=== PATIENT | male | born 1955 | race Caucasian/White ===

== ENCOUNTER 2020-01-02 08:19 | Day surgery (SDC) | payer BC ==
--- NOTE | 2020-01-01 12:51 | PCM.PREANE ---
<Mirna Tyson - Last Filed: 01/01/20 12:48> Preanesthetic Assessment - Procedure Proposed Procedure: Mass Excision of Right Hand - Anesthesia/Transfusion/Family Hx Anesthesia History: Prior Anesthesia Without Reaction Family History of Anesthesia Reaction: No Transfusion History: No Prior Transfusion(s) Intubation History: Unknown - Review of Systems Pulmonary: No Symptoms (Quit smoking March 2013/ ETOH: 4 drinks/week), Cough (?? from lisinopril) Cardiovascular: No Symptoms (Elevated cholesterol, HTN) Other: Reports: Easy Bleeding, Easy Bruising - Physical Assessment NPO Status Date: 01/01/20 Vital Signs: HR: Sat: Temp: Resp: B/P: Height: 5 ft 7 in ASA Class: 2 Mental Status: Alert & Oriented x3 - Lab Values: All labs reviewed and noted and within acceptable ranges to proceed with scheduled procedure. - Imaging/EKG Impressions: EKG: SB rate 58 (2015) right total knee - Allergies Allergies/Adverse Reactions: Allergies Allergy/AdvReac Type Severity Reaction Status Date / Time No Known Allergies Allergy Verified 01/01/20 14:53 - Anesthesia Plan Pre-Op Medication Ordered: None - Acknowledgements Anesthesia Type Planned: ANGIE Pt an Appropriate Candidate for the Planned Anesthesia: Yes Alternatives and Risks of Anesthesia Discussed w Pt/Guardian: Yes Pt/Guardian Understands and Agrees with Anesthesia Plan: Yes PreAnesthesia Questionnaire Cardiovascular History: Reports: High Cholesterol, Hypertension Genitourinary History: Reports: Other (See Below) Other Genitourinary History: Decreased libido Musculoskeletal History: Reports: Osteoarthritis Dermatologic History: Reports: Other (See Below) Other Dermatologic History: onycholysis, seborrheic keratosis, actininc keratose s - Infectious Disease History Infectious Disease History: Reports: Rheumatic Fever - Past Surgical History Musculoskeletal Surgical History: Reports: Knee Replacement, Other (See Below) - HOME MEDS Home Medications: Home Meds Cholecalciferol (Vitamin D3) [Vitamin D3] 1,000 unit PO DAILY 12/11/15 [History] Naproxen Sodium [Aleve] 220 mg PO Q6HR PRN 12/11/15 [History] Gilman-3 Fatty Acids [Fish Oil] 300 mg PO DAILY 12/11/15 [History] Rosuvastatin Calcium [Crestor] 10 mg PO DAILY 10/07/16 [History] lisinopriL [Prinivil] 20 mg PO DAILY 01/01/20 [History] Acetaminophen/HYDROcodone [Mereta 325-5 MG] 1 - 2 tab PO Q6H PRN #15 tablet 01/02/20 [Rx] <Fabian Benitez M - Last Filed: 01/02/20 08:47> Preanesthetic Assessment - Anesthesia/Transfusion/Family Hx Anesthesia History: No Prior Anesthesia Family History of Anesthesia Reaction: No Transfusion History: No Prior Transfusion(s) Intubation History: Unknown - Review of Systems General: No Symptoms Pulmonary: No Symptoms, Cough Cardiovascular: No Symptoms Gastrointestinal: No Symptoms Neurological: No Symptoms Other: Reports: Easy Bleeding, Easy Bruising - Physical Assessment NPO Status Time: 21:00 Vital Signs: 57 141/88 16 97% 97.1 Weight: 94 kg ASA Class: 2 Mental Status: Alert & Oriented x3 Airway Class: Mallampati = 1 Dentition: Reports: Normal Dentition Thyro-Mental Finger Breadths: 3 Mouth Opening Finger Breadths: 3 ROM/Head Extension: Full Lungs: Clear to Auscultation, Normal Respiratory Effort Cardiovascular: Regular Rate, Regular Rhythm - Blood Blood Available: No - Anesthesia Plan Pre-Op Medication Ordered: None - Acknowledgements Anesthesia Type Planned: ANGIE Pt an Appropriate Candidate for the Planned Anesthesia: Yes Alternatives and Risks of Anesthesia Discussed w Pt/Guardian: Yes Pt/Guardian Understands and Agrees with Anesthesia Plan: Yes PreAnesthesia Questionnaire Cardiovascular History: Reports: High Cholesterol, Hypertension Respiratory History: Reports: None Gastrointestinal History: Reports: None Oncologic (Cancer) History: Reports: None - Past Surgical History GI Surgical History: Reports: Appendectomy Musculoskeletal Surgical History: Reports: Knee Replacement - SUBSTANCE USE Tobacco Use Status *Q: Former Tobacco User (quit 2013) Tobacco Use Within Last Twelve Months: No Second Hand Smoke Exposure: No Days Per Week of Alcohol Use: 7 Number of Drinks Per Day: 1 Total Drinks Per Week: 7 Recreational Drug Use History: No - CURRENT (IN HOUSE) MEDS Current Meds: Current Medications Lactated Ringer's (Ringers, Lactated) 1,000 mls @ 125 mls/hr IV ASDIRECTED BENJIE Stop: 01/02/20 23:00 Lidocaine/Sodium Bicarbonate (Buffered Lidocaine 1% In Ns 8.4%) 0.25 ml IDERM ONETIME PRN PRN Reason: Prior to IV Start Stop: 01/02/20 18:00 Sodium Chloride (Saline Flush) 10 ml FLUSH ASDIRECTED PRN PRN Reason: Keep Vein Open Stop: 01/02/20 18:00 Discontinued Medications Cefazolin Sodium (Ancef) Confirm Administered Dose 2 gm .ROUTE .STK-MED ONE Stop: 01/02/20 05:56 Dexamethasone (Dexamethasone) Confirm Administered Dose 20 mg .ROUTE .STK-MED ONE Stop: 01/02/20 05:56 Fentanyl (Sublimaze) Confirm Administered Dose 100 mcg .ROUTE .STK-MED ONE Stop: 01/02/20 05:57 Lidocaine HCl (Xylocaine-Mpf 1%) Confirm Administered Dose 4 mls @ as directed .ROUTE .STK-MED ONE Stop: 01/02/20 05:56 Ketorolac Tromethamine (Toradol) Confirm Administered Dose 30 mg .ROUTE .STK-MED ONE Stop: 01/02/20 05:56 Lidocaine HCl (Xylocaine-Mpf 0.5%) Confirm Administered Dose 50 ml .ROUTE .STK- MED ONE Stop: 01/02/20 05:56 Midazolam HCl (Versed 1 Mg/Ml) Confirm Administered Dose 2 mg .ROUTE .STK-MED ONE Stop: 01/02/20 05:57 Ondansetron HCl (Zofran) Confirm Administered Dose 4 mg .ROUTE .STK-MED ONE Stop: 01/02/20 05:56 Propofol (Diprivan 20 Ml) Confirm Administered Dose 200 mg .ROUTE .STK-MED ONE Stop: 01/02/20 05:56 Sodium Bicarbonate (Sodium Bicarbonate 8.4%) Confirm Administered Dose 50 meq .ROUTE .STK-MED ONE Stop: 01/02/20 05:56
[~2020-01-02 08:19] MED LIST: Dexamethasone 4 MG/ML 5 ML MDV ONE; Ketorolac 30 MG/ML SDV ONE; Lactated Ringers 1,000 ML IV SCH; Lidocaine 0.5% 50 ML SDV ONE; Lidocaine 1% 4 ML ONE; Lidocaine 1%/Sod Bicarbonate in NS 8.4% 1 ML Syringe IDERM PRN; Midazolam 1 MG/ML 2 ML SDV ONE; Ondansetron 4 MG/2 ML SDV ONE; Propofol 200 MG/20 ML SDV ONE; Sodium Bicarbonate 8.4% 50 MEQ/50 ML SDV ONE; Sodium Chloride 0.9% 10 ML Syringe FLUSH PRN; ceFAZolin 1 GM Vial ONE; fentaNYL 100 MCG/2 ML SDV ONE
[2020-01-02] MEDS ORDERED: Bupivacaine 0.25% 10 ML SDV ONE (10:47)
--- NOTE | 2020-01-02 10:58 | PCM48HPAN ---
Post Anesthesia Note - EVALUATION WITHIN 48HRS OF ANESTHETIC Vital Signs in Normal Range: Yes Patient Participated in Evaluation: Yes Respiratory Function Stable: Yes Airway Patent: Yes Cardiovascular Function Stable: Yes Hydration Status Stable: Yes Pain Control Satisfactory: Yes Nausea and Vomiting Control Satisfactory: Yes Mental Status Recovered: Yes Vital Signs: Last Vital Signs Temp 97.1 F 01/02/20 08:20 Pulse 57 L 01/02/20 08:20 Resp 16 01/02/20 08:20 BP 141/88 H 01/02/20 08:20 Pulse Ox 97 01/02/20 08:20 1055 64 10 97.0 95% 122/77
[2020-01-02 11:34] VITALS: BP 120/85; PULSE 55
--- NOTE | 2020-01-13 11:02 | PCM.OPNOTE ---
- General Post-Op/Procedure Note Date of Surgery/Procedure: 01/02/20 Operative Procedure(s): right hand mass excision Pre Op Diagnosis: right hand mass Post-Op Diagnosis: Same Anesthesia Technique: MAC, Regional Block Primary Surgeon: Rajiv Sargent Anesthesia Provider: Fabian Benitez Container Washer Machine: Alberta Han EBL in mLs: 5 Complications: None Condition: Good
--- NOTE | 2020-01-13 11:18 | OR ---
DATE OF OPERATION: 01/02/2020 SURGEON: Rajiv Sargent MD OPERATION PERFORMED: Right hand mass excision. PREOPERATIVE DIAGNOSIS: Right hand mass. POSTOPERATIVE DIAGNOSIS: Right hand mass. ANESTHESIA: MAC with regional [place] block. ANESTHESIA PROVIDER: Fabian Benitez CRNA DIRECTOR OF ATHLETICS: Ablerta Han PA-C ESTIMATED BLOOD LOSS: 5 mL. COMPLICATIONS: None. CONDITION: Stable. SPECIMENS: Right hand mass sent for permanent. DESCRIPTION OF PROCEDURE: The patient was identified in the preoperative holding area where the proper site was marked and identified by the surgeon. The patient was taken back to the operating theater where, after adequate anesthesia, a niko block was performed to the right upper extremity. The patient had 2 g of IV Ancef before this was completed. At this time, then the right upper extremity was sterilely prepped and draped in the usual sterile fashion. OR time-out was performed. The patient received preoperative antibiotics beforehand as stated. At this time, a longitudinal incision was made centered over the hand mass just ulnar to the dorsum of the 5th metacarpal. This was taken down. The patient was noted to have an epidermal inclusion cyst. Some of the material was evacuated, and then it was removed and resected in whole. There was no tendinous involvement, and no nerve involvement that was noted or any neurovascular involvement. At this time, once it was completely resected, it was sent for permanent specimen. Adequate saline was irrigated through the wound. 3-0 Vicryl was used subcutaneously. Monocryl was used for closure of the skin. The patient was placed in a sterile soft dressing and sent to the PACU in stable condition. MMODAL /[id number]
== END 2020-01-02 11:37 | disposition home or self-care (01) ==
LOC: JD.SDS 08:19
PROVIDERS: ATTEND Orthopaedic Surgery
DX: L72.0 Epidermal cyst (principal); D36.10 Benign neoplasm of peripheral nerves and autonomic nervous system, unspecified; E78.00 Pure hypercholesterolemia, unspecified; I10 Essential (primary) hypertension; E66.3 Overweight; Z79.899 Other long term (current) drug therapy; Z87.891 Personal history of nicotine dependence; Z79.82 Long term (current) use of aspirin; Z68.30 Body mass index [BMI] 30.0-30.9, adult
CPT/HCPCS: 11424; J0690; J1100; J1885; J2001; J2250; J2405; J2704; J3010; J3490; J7120; 01810

== ENCOUNTER 2020-02-02 19:28 | Emergency (ER) | payer BC ==
[2020-02-02 19:48] VITALS: BP 165/91; PULSE 62
--- NOTE | 2020-02-02 20:35 | EDM.PDOC ---
ED HPI GENERAL MEDICAL PROBLEM - General Chief Complaint: Respiratory Problem Stated Complaint: sob cough congestion body aches Time Seen by Provider: 02/02/20 19:52 Source of Information: Reports: Patient, RN Notes Reviewed - History of Present Illness INITIAL COMMENTS - FREE TEXT/NARRATIVE: 64 yr old male has been ill for about 7 days with lloyd, nasal lloyd., cough, dyspnea, chills, body aches. He did have a covid screen done 6 days ago, has not yet heard results. Most concerned cough and difficulty breathing. Left Upper Chest Pain Score (Numeric/FACES): 8 - Related Data Allergies Allergy/AdvReac Type Severity Reaction Status Date / Time No Known Allergies Allergy Verified 02/02/20 19:48 Home Meds: Home Meds Cholecalciferol (Vitamin D3) [Vitamin D3] 1,000 unit PO DAILY 12/11/15 [History] Naproxen Sodium [Aleve] 220 mg PO Q6HR PRN 12/11/15 [History] [place]oval-3 Fatty Acids [Fish Oil] 300 mg PO DAILY 12/11/15 [History] Rosuvastatin Calcium [Crestor] 10 mg PO DAILY 12/11/15 [History] lisinopriL [Prinivil] 20 mg PO DAILY 01/01/20 [History] Past Medical History Cardiovascular History: Reports: High Cholesterol, Hypertension Respiratory History: Reports: None Gastrointestinal History: Reports: None Genitourinary History: Reports: Other (See Below) Other Genitourinary History: 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 Musculoskeletal History: Reports: Osteoarthritis Neurological History: Reports: None Psychiatric History: Reports: None Endocrine/Metabolic History: Reports: None Hematologic History: Reports: None Immunologic History: Reports: None Oncologic (Cancer) History: Reports: None Dermatologic History: Reports: Other (See Below) Other Dermatologic History: onycholysis, seborrheic keratosis, actininc keratoses - Infectious Disease History Infectious Disease History: Reports: Chicken Pox, Measles, Mumps - Past Surgical History Head Surgeries/Procedures: Reports: None HEENT Surgical History: Reports: LASIK, Tonsillectomy Cardiovascular Surgical History: Reports: None Respiratory Surgical History: Reports: None GI Surgical History: Reports: Appendectomy Male Surgical History: Reports: None Endocrine Surgical History: Reports: None Neurological Surgical History: Reports: None Musculoskeletal Surgical History: Reports: Knee Replacement Other Musculoskeletal Surgeries/Procedures:: bilateral knee replacements Oncologic Surgical History: Reports: None Dermatological Surgical History: Reports: None Social & Family History - Family History Family Medical History: No Pertinent Family History Cardiac: Reports: CAD, NM Other Cardiac Family History: father OBGYN: Reports: Endocrine/Metabolic: Reports: Diabetes, type II Other Endocrine/Metabolic Family History: Mother Oncologic: Reports: Other (See Below) Other Oncologic Family History: Mother of cancer - Tobacco Use Tobacco Use Status *Q: Former Tobacco User Used Tobacco, but Quit: Yes Month/Year Tobacco Last Used: 2011 - Caffeine Use Caffeine Use: Reports: Coffee, Soda - Recreational Drug Use Recreational Drug Use: No ED ROS GENERAL - Review of Systems Review Of Systems: See Below Constitutional: Reports: Fever (low grade), Chills HEENT: Reports: Rhinitis Respiratory: Reports: Shortness of Breath, Cough Cardiovascular: Denies: Chest Pain Endocrine: Reports: Fatigue GI/Abdominal: Reports: Decreased Appetite. Denies: Abdominal Pain, Nausea, Vomiting Musculoskeletal: Reports: Other (generalized achiness) Skin: Reports: No Symptoms Neurological: Reports: Headache (mild off and on) ED EXAM, GENERAL - Physical Exam Exam: See Below General Appearance: Alert, No Apparent Distress Head: Atraumatic Neck: Supple Respiratory/Chest: No Respiratory Distress, Lungs Clear, Normal Breath Sounds. No: Rales, Rhonchi, Wheezing Cardiovascular: Regular Rate, Rhythm GI/Abdominal: Soft, Non-Tender Extremities: Normal Inspection. No: Pedal Edema, Leg Pain, Increased Warmth, Redness Neurological: Alert, Oriented, No Motor/Sensory Deficits Skin Exam: Warm, Dry, Normal Color Course - Vital Signs Last Recorded V/S: Last Vital Signs Temp 98.4 F 02/02/20 19:38 Pulse 62 02/02/20 19:38 Resp 20 02/02/20 19:38 BP 165/91 H 02/02/20 19:38 Pulse Ox 100 02/02/20 19:38 - Orders/Labs/Meds Orders: Active Orders 24 hr Category Date Time Status Chest 1V Frontal [CR] Stat Exams 02/02/20 19:54 Taken CORONAVIRUS COVID-19 PCR PHL Stat Lab 02/02/20 20:35 Received FERRITIN [CHEM] Stat Lab 02/02/20 20:18 Received Labs: Laboratory Tests 02/02/20 02/02/20 02/02/20 Range/Units 20:18 20:18 20:18 WBC 6.59 (4.23-9.07) K/mm3 RBC 4.66 (4.63-6.08) M/mm3 Hgb 15.5 D (13.7-17.5) gm/dl Hct 44.5 (40.1-51.0) % MCV 95.5 H D (79.0-92.2) fl MCH 33.3 H (25.7-32.2) pg MCHC 34.8 (32.2-35.5) g/dl RDW Std Deviation 41.6 (35.1-43.9) fL Plt Count 234 (163-337) K/mm3 MPV 8.4 L (9.4-12.3) fl Neut % (Auto) 65.9 (34.0-67.9) % Lymph % (Auto) 20.5 L (21.8-53.1) % [place] % (Auto) 12.1 (5.3-12.2) % Eos % (Auto) 1.2 (0.8-7.0) Baso % (Auto) 0.3 (0.1-1.2) % Neut # (Auto) 4.34 (1.78-5.38) K/mm3 Lymph # (Auto) 1.35 (1.32-3.57) K/mm3 [place] # (Auto) 0.80 (0.30-0.82) K/mm3 Eos # (Auto) 0.08 (0.04-0.54) K/mm3 Baso # (Auto) 0.02 (0.01-0.08) K/mm3 D-Dimer, Quantitative 0.20 (0.19-0.50) mg/L Lactate Dehydrogenase 188 (85-227) U/L C-Reactive Protein 0.5 (<1.0) mg/dL Meds: Medications Discontinued Medications Generic Name Dose Route Start Last Admin Trade Name Freq PRN Reason Stop Dose Admin Azithromycin 500 mg 02/02/20 21:30 Zithromax PO 02/02/20 21:31 ONETIME ONE - Re-Assessments/Exams Free Text/Narrative Re-Assessment/Exam: 02/02/20 21:09 We checked with Pancho, his covid screen from 6 days ago was neg. His CXR is nl, oxygen good with sats 99 to 100 %. D Dimer 0.2. Departure - Departure Time of Disposition: 21:31 Disposition: Home, Self-Care 01 Condition: Fair Clinical Impression: Bronchitis - Discharge Information Instructions: Acute Bronchitis, Adult Referrals: PCP,None [Primary Care Provider] - Forms: ED Department Discharge Additional Instructions: Your CXR is normal this evening. Your oxygen reading are also normal running 99 to 100 %. The inflamatory markers that are always elevated with serious covid infection are normal this evening, not elevated. Therefore if you do have covid it is mild with no sign of inflamation or pneumonia. You have been given your first dose of zithromax for bronchitis. Fill the prescription provided tomorrow and continue that until gone. We will call you with results of the covid screen done this evening, usually available in 2 to 3 days. Return to ED for severe difficulty breathing or otherwise as needed. Sepsis Event Note (ED) - Evaluation Sepsis Screening Result: No Definite Risk - Focused Exam Vital Signs: Vital Signs Temp Pulse Resp BP Pulse Ox 02/02/20 19:38 98.4 F 62 20 165/91 H 100 - My Orders Last 24 Hours: My Active Orders 02/02/20 19:54 Chest 1V Frontal [CR] Stat 02/02/20 20:18 FERRITIN [CHEM] Stat 02/02/20 20:35 CORONAVIRUS COVID-19 PCR PHL Stat - Assessment/Plan Last 24 Hours: My Active Orders 02/02/20 19:54 Chest 1V Frontal [CR] Stat 02/02/20 20:18 FERRITIN [CHEM] Stat 02/02/20 20:35 CORONAVIRUS COVID-19 PCR PHL Stat
[2020-02-02] MEDS ORDERED: Azithromycin 250 MG Tab PO ONE (21:30)
--- NOTE | 2020-02-03 13:29 | CR ---
PROCEDURE INFORMATION: Exam: XR Chest, 1 View Exam date and time: 02/02/2020 8:20 PM Age: 64 years old Clinical indication: Patient HX: Cough, dyspnea onset 6 days ago TECHNIQUE: Imaging protocol: XR of the chest Views: 1 view. COMPARISON: No relevant prior studies available. FINDINGS: Lungs: Unremarkable. No consolidation. Pleural space: Unremarkable. No pleural effusion. No pneumothorax. Heart/Mediastinum: Unremarkable. No cardiomegaly. Bones/joints: Unremarkable. IMPRESSION: No acute findings. Thank you for allowing us to participate in the care of your patient. Dictated and Authenticated by: Arthur Sofia MD 02/02/2020 9:54 PM Central Time ([place] & [place]) JAIME
== END 2020-02-02 21:49 | disposition home or self-care (01) ==
LOC: JD.ED 19:28
DX: U07.1 COVID-19 (principal); J40 Bronchitis, not specified as acute or chronic; E78.00 Pure hypercholesterolemia, unspecified; I10 Essential (primary) hypertension; Z79.899 Other long term (current) drug therapy; Z87.891 Personal history of nicotine dependence
CPT/HCPCS: 36415; 71045; 82728; 83615; 85025; 85379; 86140; 87635; 99285; A9270; 99283; U0002